=== PATIENT | male | born 1965 | race African-American/Black ===

== ENCOUNTER 2017-11-10 20:15 | Emergency (ER) | payer OTHER ==
[~2017-11-10] VITALS: Ht 177.8 cm; Wt 86.2 kg
[2017-11-10] MEDS ORDERED: FLEXERIL PO (20:41)
[2017-11-10] MEDS ORDERED: ACETAMINOPHEN-1 EAC1 PO (20:41)
[2017-11-10] MEDS ORDERED: IBUPROFEN 600600 M1 PO (20:41)
[2017-11-10 21:35] VITALS: BP 139/95
== END 2017-11-10 21:37 | disposition home or self-care (01) ==
LOC: M.ERS 20:15
DX: M25.511 Pain in right shoulder (principal)

== ENCOUNTER 2018-01-19 05:28 | Emergency (ER) | payer OTHER ==
[~2018-01-19] VITALS: Ht 177.8 cm; Wt 88.5 kg
[~2018-01-19 05:28] MED LIST: ACETAMINOPHEN-1 EAC1 PO; FLEXERIL PO; IBUPROFEN 600600 M1 PO
[2018-01-19] MEDS ORDERED: PERCOCET 7.5-31 EACH PO (05:42)
[2018-01-19 06:49] VITALS: BP 142/88
== END 2018-01-19 06:53 | disposition home or self-care (01) ==
LOC: M.ERS 05:28
DX: M96.830 Postprocedural hemorrhage of a musculoskeletal structure following a musculoskeletal system procedure (principal)

== ENCOUNTER 2019-05-14 15:36 | Emergency (ER) | payer OTHER ==
[~2019-05-14] VITALS: Ht 177.8 cm; Wt 86.2 kg
[~2019-05-14 15:36] MED LIST changes: +PERCOCET 7.5-31 EACH PO
[2019-05-14 16:29] LABS: INFLUENZA A ANTIGEN Negative (Negative); INFLUENZA B ANTIGEN Negative (Negative)
[2019-05-14] MEDS ORDERED: TESSALON PERLE100 MG PO (16:30)
[2019-05-14] MEDS ORDERED: PROMETHAZI6.25 MG/5 PO (16:30)
[2019-05-14] MEDS ORDERED: MEDROLDOSEPACK PO (16:30)
[2019-05-14] MEDS ORDERED: ZPAK PO (16:30)
[2019-05-14 16:47] VITALS: BP 134/82
== END 2019-05-14 16:48 | disposition home or self-care (01) ==
LOC: M.ERS 15:36
PROVIDERS: Physician Assistant
DX: J20.9 Acute bronchitis, unspecified (principal); Z98.890 Other specified postprocedural states

== ENCOUNTER 2019-11-03 03:09 | Emergency (ER) | payer OTHER ==
[~2019-11-03] VITALS: Ht 180.3 cm; Wt 86.2 kg
[~2019-11-03 03:09] MED LIST changes: +MEDROLDOSEPACK PO; +PROMETHAZI6.25 MG/5 PO; +TESSALON PERLE100 MG PO; +ZPAK PO
[2019-11-03] MEDS ORDERED: ACYCLOVIR 400400 MG PO (03:38)
[2019-11-03 03:55] VITALS: BP 136/78
== END 2019-11-03 03:55 | disposition home or self-care (01) ==
LOC: M.ERS 03:09
DX: G51.0 Bell's palsy (principal)